=== PATIENT | female | born 1960 | race Caucasian/White ===

== ENCOUNTER → 2017-01-16 | Outpatient (CLI) | payer BC | LOC: BMCIMAGING 08:43 | PROVIDERS: ATTEND Podiatrist Foot & Ankle Surgery | DX: Z09 Encounter for follow-up examination after completed treatment for conditions other than malignant neoplasm (principal); Z98.1 Arthrodesis status ==

== ENCOUNTER → 2017-02-04 | Outpatient (CLI) | payer BC | LOC: BMCIMAGING 12:46 | PROVIDERS: ATTEND Podiatrist Foot & Ankle Surgery | DX: Z09 Encounter for follow-up examination after completed treatment for conditions other than malignant neoplasm (principal); Z98.1 Arthrodesis status ==

== ENCOUNTER → 2017-02-22 | Outpatient (CLI) | payer BC | LOC: BMCIMAGING 08:52 | PROVIDERS: ATTEND Podiatrist Foot & Ankle Surgery | DX: Z47.89 Encounter for other orthopedic aftercare (principal); Z98.1 Arthrodesis status ==

== ENCOUNTER → 2017-03-15 | Outpatient (CLI) | payer BC | LOC: BMCIMAGING 08:41 | PROVIDERS: ATTEND Podiatrist Foot & Ankle Surgery | DX: Z09 Encounter for follow-up examination after completed treatment for conditions other than malignant neoplasm (principal); Z98.1 Arthrodesis status ==

== ENCOUNTER → 2017-04-05 | Outpatient (CLI) | payer BC | LOC: BMCIMAGING 11:56 | PROVIDERS: ATTEND Podiatrist Foot & Ankle Surgery | DX: M79.672 Pain in left foot (principal); Z96.698 Presence of other orthopedic joint implants ==

== ENCOUNTER → 2017-07-02 | Outpatient (CLI) | payer BC, OTHER | LOC: CIMAGING 13:21 | PROVIDERS: ATTEND Podiatrist Foot & Ankle Surgery | DX: M79.672 Pain in left foot (principal); Z98.1 Arthrodesis status | CPT/HCPCS: 73700-PO ==

== ENCOUNTER 2017-07-19 11:19 | Emergency (ER) | payer OTHER ==
--- NOTE | 2017-07-19 12:35 | EDPHY ---
H & P Time Seen by Provider: 07/19/17 11:21 HPI/ROS: 57 yo F presents complaining of left frontoparietal scalp pain and states she just does not feel herself she has had some mild nausea, difficulty concentrating and headache. These all started after hitting her head on a shelf. She states she was initially dazed she did not lose consciousness she had no vomiting. This happened approximately 48 hr prior to this visit. She did not seek care at that time She denies weakness in her extremities, she denies difficulty with her speech . Review of systems As per HPI General no fever no chills no weakness HEENT no eye pain no eye discharge. No eye redness, no sore throat Respiratory no cough, no shortness of breath Cardiac no chest pain, no peripheral edema GI no abdominal pain, no diarrhea, no constipation, no nausea, no vomiting no flank pain, no hematuria, no dysuria Musculoskeletal no myalgias, no joint pain Heme no easy bruising, no easy bleeding Endo no polyuria, no polydipsia Skin no rashes, no pruritus Neuro no syncope, no dizziness, pos headaches Psych is no suicidal ideation, no homicidal ideation Past Medical/Surgical History: TBI per patient migraines peptic ulcer disease Social History: works at [employer] Smoking Status: Former smoker Physical Exam: 57-year-old female alert and oriented no acute distress nontoxic appearance HEENT atraumatic normocephalic, extraocular muscles intact, anicteric Left frontoparietal area with tenderness to palpation, no swelling no ecchymosis no erythema Oropharynx negative for erythema negative exudate, tolerating her own secretions Neck supple no meningismus Lungs clear to auscultation bilaterally Heart regular rate and rhythm without murmur rub or gallop Abdomen nondistended normoactive bowel sounds soft nontender Back no CVA tenderness, no step-offs, no spinal tenderness Extremities no cyanosis clubbing or edema Neuro alert and oriented, no focal deficits Constitutional: Initial Vital Signs Temperature (C) 36.9 C 07/19/17 11:25 Heart Rate 82 07/19/17 11:25 Respiratory Rate 18 07/19/17 11:25 Blood Pressure 147/93 H 07/19/17 11:25 O2 Sat (%) 94 07/19/17 11:25 O2 Delivery Mode Room Air Allergies/Adverse Reactions: NSAIDS (Non-Steroidal Anti-Inflamma Allergy (Intermediate, Verified 07/19/17 11: 29) HX ULCER, CONTRAINDICATED Home Medications: Medication Instructions Recorded Multivitamin (*) 07/19/17 Medical Decision Making - Diagnostics Imaging Results: Imaging Impressions Head CT 07/19/17 11:44 Impression: 1. Normal CT brain without contrast. 2. No sinusitis. 3. No skull fracture. Findings and recommendations discussed with Emergency Department physician, Dr. Meggan Hawkins at 1234 hours on July 19, 2017. Final report concurs with initial preliminary interpretation. ED Course/Re-evaluation: Patient seen and evaluated for head injury from [address] scan negative for intracranial bleed, lesion, swelling Impression Scalp contusion Concussion Plan Follow-up PCP Differential Diagnosis: Differential diagnosis considered but not limited to: Scalp contusion, concussion, subdural, epidural Departure - Departure Disposition: Home, Routine, Self-Care Clinical Impression: Contusion of scalp, Concussion Condition: Good Instructions: Concussion (ED), Scalp Contusion in Adults (ED) Referrals: Andreas Lr MD [Primary Care Provider] - As per Instructions Stand Alone Forms: Work Excuse
[2017-07-19 12:44] VITALS: BP 131/80
== END 2017-07-19 12:43 | disposition home or self-care (01) ==
LOC: CED 11:19
DX: S06.0X0A Concussion without loss of consciousness, initial encounter (principal); S00.03XA Contusion of scalp, initial encounter; Z87.891 Personal history of nicotine dependence; W22.8XXA Striking against or struck by other objects, initial encounter; Y92.009 Unspecified place in unspecified non-institutional (private) residence as the place of occurrence of the external cause
CPT/HCPCS: 70450-PO